=== PATIENT | male | born 1990 | race Caucasian/White ===

== ENCOUNTER 2017-01-25 20:38 | Emergency (ER) | payer SELFPAY ==
[2017-01-25] MEDS ORDERED: predniSONE 20 MG TAB PO ONE (21:42)
[2017-01-25] MEDS ORDERED: SULFA/TRIMETH 800/160 (DS) TAB 1 EA TAB PO ONE (21:42)
[2017-01-25 21:44] VITALS: TEMP 97.4; O2SAT 100
--- NOTE | 2017-01-25 22:47 | ED.PDOC ---
History of Present Illness - General Chief Complaint: Upper Extremity Injury Stated Complaint: edema to rt hand Time Seen by Provider: 01/25/17 21:37 Source: patient Exam Limitations: no limitations - History of Present Illness Initial Comments: he patient is a 26-year-old male presenting to emergency room secondary to swelling and pain of his right hand. The patient was stung on the dorsal aspect of his hand last night when he was putting up some medical equipment. I can actually see the spot where he was stung. He is unsure what kind of insect it was as it was dark outside. He had some burning and itching and tingling at the time. He got a little bit better overnight. He woke up this morning with some mild swelling in his hand that has progressed in the day. At this point in time he has significant swelling of the whole hand as well as the distal third of the forearm. He is neurovascularly intact. Capillary refills within normal limits. There is no blister formation. There is no obvious infectious cellulitis. I see no abscess. There is nothing at this time to drain. He is not febrile. There is mild warmth to the swelling. Tendon functions appear preserved. No other areas affected. No breathing difficulties. No extending rash passed that. Timing/Duration: 24 hours Severity: moderate Improving Factors: nothing Worsening Factors: nothing Associated Symptoms: denies symptoms Allergies/Adverse Reactions: Allergies Amoxicillin Allergy (Verified 07/03/15 12:51) Penicillins Allergy (Verified 07/08/14 13:40) Home Medications: Ambulatory Orders Sulfa/Trimeth 800/160 (Ds) Tab [Bactrim DS Tab] 1 ea PO BID #10 tab 01/25/17 predniSONE [Prednisone] 20 mg PO DAILY #5 tab 01/25/17 Review of Systems - Review of Systems Constitutional: States: no symptoms reported EENTM: States: no symptoms reported Respiratory: States: no symptoms reported Cardiology: States: no symptoms reported Gastrointestinal/Abdominal: States: no symptoms reported Genitourinary: States: no symptoms reported Musculoskeletal: States: see HPI Skin: States: see HPI Neurological: States: no symptoms reported Endocrine: States: no symptoms reported All other Systems: No Change from Baseline Past Medical History (General) - Patient Medical History Hx Seizures: No Hx Stroke: No Hx Dementia: No Hx Asthma: No Hx of COPD: No Hx Cardiac Disorders: No Hx Congestive Heart Failure: No Hx Pacemaker: No Hx Hypertension: No Hx Thyroid Disease: No Hx Diabetes: No Hx Gastroesophageal Reflux: No Hx Renal Disease: No Hx Cancer: No Hx of HIV: No Hx Hepatitis C: No Hx MRSA: No Surgical History: no surgical history - Vaccination History Hx Tetanus, Diphtheria Vaccination: Yes Hx Influenza Vaccination: No - Social History Hx Tobacco Use: Yes Hx Alcohol Use: No Hx Substance Use: - occasionally smokes weed Hx Substance Use Treatment: No Hx Depression: No Family Medical History - Family History Mother Family History: No Known Physical Exam - Physical Exam General Appearance: Alert, Comfortable, No apparent distress Eye Exam: bilateral normal Ears, Nose, Throat: hearing grossly normal, normal ENT inspection, normal pharynx Neck: full range of motion, supple Respiratory: chest non-tender, lungs clear, normal breath sounds, no respiratory distress, no accessory muscle use Cardiovascular/Chest: normal peripheral pulses, regular rate, rhythm, no edema Peripheral Pulses: radial,right: 2+, radial,left: 2+ Extremity: normal range of motion, no pedal edema, no calf tenderness, normal capillary refill, swelling - see history of present illness. No other blisters. No pustules. No papules. Simply generalized swelling. 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 I do not think there is any active infection. the patient did however receive a dose of Bactrim tonight here and a dose of prednisone. The patient will be written for Bactrim DS twice daily for 5 days primarily prophylactically, and he needs to take these with food. He 'll be written for prednisone 20 mg daily for 5 days as well. He will be allowed to go home but if there is any significant worsening tomorrow he will need to be reevaluated. ER warnings were given. Motrin can be used for discomfort as well. There is no evidence of neurovascular compromise at this time. No evidence of any tissue necrosis. Departure - Departure Clinical Impression: Allergic reaction to insect sting Qualifiers: Encounter type: initial encounter Injury intent: accidental or unintentional Qualified Code(s): T63.481A - Toxic effect of venom of other arthropod, accidental (unintentional), initial encounter Disposition: Discharge to Home or Self Care Condition: Fair Departure Forms: ED Discharge - Pt. Copy, Patient Portal Self Enrollment Instructions: DI for Insect Allergy Diet: regular diet Activity: increase activity as tolerated Prescriptions: predniSONE [Prednisone] 20 mg PO DAILY #5 tab Sulfa/Trimeth 800/160 (Ds) Tab [Bactrim DS Tab] 1 ea PO BID #10 tab Home Medications: Ambulatory Orders Sulfa/Trimeth 800/160 (Ds) Tab [Bactrim DS Tab] 1 ea PO BID #10 tab 01/25/17 predniSONE [Prednisone] 20 mg PO DAILY #5 tab 01/25/17 Additional Instructions: the patient is a 26-year-old male presenting with localized swelling of the hand and forearm on the right that appears to be due to an allergic reaction to an insect sting from last night. I do not think there is any active infection. the patient did however receive a dose of Bactrim tonight here and a dose of prednisone. The patient will be written for Bactrim DS twice daily for 5 days primarily prophylactically, and he needs to take these with food. He 'll be written for prednisone 20 mg daily for 5 days as well. He will be allowed to go home but if there is any significant worsening tomorrow he will need to be reevaluated. ER warnings were given. Motrin can be used for discomfort as well. There is no evidence of neurovascular compromise at this time. No evidence of any tissue necrosis.
[2017-01-25 23:04] VITALS: BP 122/72
== END 2017-01-25 23:04 | disposition home or self-care (01) ==
LOC: ER 20:38
DX: T63.481A Toxic effect of venom of other arthropod, accidental (unintentional), initial encounter (principal); M79.89 Other specified soft tissue disorders; Z88.3 Allergy status to other anti-infective agents; Z88.0 Allergy status to penicillin; Z87.891 Personal history of nicotine dependence

== ENCOUNTER 2017-11-14 20:46 | Emergency (ER) | payer SELFPAY ==
[2017-11-14] MEDS ORDERED: SULFA/TRIMETH 800/160 (DS) TAB 1 EA TAB PO ONE (21:05)
--- NOTE | 2017-11-14 21:13 | ED.PDOC ---
History of Present Illness - General Time Seen by Provider: 11/14/17 21:04 Source: patient Exam Limitations: no limitations - History of Present Illness Initial Comments: The patient is a 27-year-old male presenting to emergency room secondary to a left earlobe abscess that has been growing over the last week. No drainage. No fevers. No evidence of extending cellulitis. No hearing changes. No altered mental status. No headache. No previous abscesses. Timing/Duration: unsure Severity: moderate Improving Factors: nothing Worsening Factors: nothing Associated Symptoms: denies symptoms Allergies/Adverse Reactions: Allergies Amoxicillin Allergy (Verified 07/03/15 12:51) Penicillins Allergy (Verified 07/08/14 13:40) Home Medications: Ambulatory Orders Sulfa/Trimeth 800/160 (Ds) Tab [Bactrim DS Tab] 1 ea PO BID #10 tab 01/25/17 predniSONE [Prednisone] 20 mg PO DAILY #5 tab 01/25/17 Sulfa/Trimeth 800/160 (Ds) Tab [Bactrim DS Tab] 1 ea PO BID #14 tab 11/14/17 Review of Systems - Review of Systems Constitutional: States: no symptoms reported EENTM: States: see HPI Respiratory: States: no symptoms reported Cardiology: States: no symptoms reported Gastrointestinal/Abdominal: States: no symptoms reported Genitourinary: States: no symptoms reported Musculoskeletal: States: no symptoms reported Skin: States: see HPI Neurological: States: no symptoms reported Endocrine: States: no symptoms reported All other Systems: No Change from Baseline Past Medical History (General) - Patient Medical History Hx Seizures: No Hx Stroke: No Hx Dementia: No Hx Asthma: No Hx of COPD: No Hx Cardiac Disorders: No Hx Congestive Heart Failure: No Hx Pacemaker: No Hx Hypertension: No Hx Thyroid Disease: No Hx Diabetes: No Hx Gastroesophageal Reflux: No Hx Renal Disease: No Hx Cancer: No Hx of HIV: No Hx Hepatitis C: No Hx MRSA: No - Vaccination History Hx Tetanus, Diphtheria Vaccination: Yes Hx Influenza Vaccination: No - Social History Hx Tobacco Use: Yes Hx Alcohol Use: No Hx Substance Use: - occasionally smokes weed Hx Substance Use Treatment: No Hx Depression: No Family Medical History - Family History Mother Family History: No Known Physical Exam - Physical Exam General Appearance: Alert, Comfortable, No apparent distress Eye Exam: bilateral normal Ears, Nose, Throat: hearing grossly normal, normal pharynx Neck: full range of motion, supple Respiratory: no respiratory distress, no accessory muscle use Cardiovascular/Chest: normal peripheral pulses, no edema Peripheral Pulses: radial,right: 2+, radial,left: 2+ Gastrointestinal/Abdominal: non tender, soft Rectal Exam: deferred 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 After risks and benefits were explained the patient agreed to I&D. A #15 blade scalpel was used to make a 1.5 cm incision into the posterior aspect of the abscess. Approximately 2 cc of pus were obtained. Dressing was applied. The patient was given his first dose of Bactrim here tonight. The patient be placed on Bactrim twice daily for the next 7 days. Needs to wash the wound twice daily with antibacterial soap and express out any additional pus that is there. ER warnings were given for any worsening. Departure - Departure Clinical Impression: Skin abscess Qualifiers: Site of cutaneous abscess: face Qualified Code(s): L02.01 - Cutaneous abscess of face Disposition: Discharge to Home or Self Care Condition: Fair Instructions: DI for Skin Abscess Diet: regular diet Activity: increase activity as tolerated Prescriptions: Sulfa/Trimeth 800/160 (Ds) Tab [Bactrim DS Tab] 1 ea PO BID #14 tab Home Medications: Ambulatory Orders Sulfa/Trimeth 800/160 (Ds) Tab [Bactrim DS Tab] 1 ea PO BID #10 tab 01/25/17 predniSONE [Prednisone] 20 mg PO DAILY #5 tab 01/25/17 Sulfa/Trimeth 800/160 (Ds) Tab [Bactrim DS Tab] 1 ea PO BID #14 tab 11/14/17 Additional Instructions: the patient is a 27-year-old male presenting to emergency room with an abscess to left earlobe. After risks and benefits were explained the patient agreed to I&D. A #15 blade scalpel was used to make a 1.5 cm incision into the posterior aspect of the abscess. Approximately 2 cc of pus were obtained. Dressing was applied. The patient was given his first dose of Bactrim here tonight. The patient be placed on Bactrim twice daily for the next 7 days. Needs to wash the wound twice daily with antibacterial soap and express out any additional pus that is there. ER warnings were given for any worsening.
[2017-11-14 22:07] VITALS: BP 127/76; TEMP 97.9; O2SAT 99
== END 2017-11-14 21:35 | disposition home or self-care (01) ==
LOC: ER 20:46
DX: H60.02 Abscess of left external ear (principal); Z87.891 Personal history of nicotine dependence

== ENCOUNTER 2018-01-21 18:47 | Emergency (ER) | payer SELFPAY ==
[2018-01-21 19:03] VITALS: O2SAT 96
[2018-01-21] MEDS ORDERED: methylPREDNISolone SODIUM SUC 125 MG/2 ML VIAL IM ONE (19:05)
[2018-01-21] MEDS ORDERED: cefTRIAXone SODIUM 1 GM VIAL IM ONE (19:05)
--- NOTE | 2018-01-21 19:09 | ED.PDOC ---
History of Present Illness - General Chief Complaint: Bite: Animal/Insect/Human Stated Complaint: Bit by something on left elbow Time Seen by Provider: 01/21/18 19:05 Source: patient Exam Limitations: no limitations - History of Present Illness Initial Comments: patient comes in today for insect bites with swelling and redness. Patient states yesterday he felt a sudden stinging pain and then they felt a black bug that was on top of him he believes was a spider. At that time the area was very itchy with a little bit of clear fluid from the central vesicle last night. Since then however the arm has gotten red, hot, and swollen. The pain is increasing and patient started becoming concerned. He does not have any fever, chills, nausea or vomiting. He is otherwise healthy and has no past medical history. He does not take any medications chronically and he has no known drug allergies. Timing/Duration: getting worse, other - started yesterday Severity: moderate Improving Factors: nothing Worsening Factors: nothing Associated Symptoms: denies symptoms Allergies/Adverse Reactions: Allergies NO KNOWN ALLERGY Allergy (Verified 01/21/18 19:04) Home Medications: Ambulatory Orders Sulfa/Trimeth 800/160 (Ds) Tab [Bactrim DS Tab] 1 ea PO BID #10 tab 01/25/17 predniSONE [Prednisone] 20 mg PO DAILY #5 tab 01/25/17 Sulfa/Trimeth 800/160 (Ds) Tab [Bactrim DS Tab] 1 ea PO BID #14 tab 11/14/17 Cephalexin 500 mg PO TID 7 Days #21 cap 01/21/18 Prednisone 10 mg PO DAILY 4 Days #4 tab 01/21/18 Review of Systems - Review of Systems Constitutional: States: no symptoms reported. Denies: chills, diaphoresis, fever EENTM: States: no symptoms reported Respiratory: States: no symptoms reported. Denies: cough, short of breath, wheezing Cardiology: States: no symptoms reported Gastrointestinal/Abdominal: States: no symptoms reported. Denies: nausea, vomiting Skin: States: see HPI Past Medical History (General) - Patient Medical History Hx Seizures: No Hx Stroke: No Hx Dementia: No Hx Asthma: No Hx of COPD: No Hx Cardiac Disorders: No Hx Congestive Heart Failure: No Hx Pacemaker: No Hx Hypertension: No Hx Thyroid Disease: No Hx Diabetes: No Hx Gastroesophageal Reflux: No Hx Renal Disease: No Hx Cancer: No Hx of HIV: No Hx Hepatitis C: No Hx MRSA: No Surgical History: no surgical history - Vaccination History Hx Tetanus, Diphtheria Vaccination: Yes Hx Influenza Vaccination: No Hx Pneumococcal Vaccination: No Immunizations Up to Date: Yes - Social History Hx Tobacco Use: Yes Hx Chewing Tobacco Use: No Hx Alcohol Use: No Hx Substance Use: No - occasionally smokes weed Hx Substance Use Treatment: No Hx Depression: No Feels Threatened In Home Enviroment: No Feels Threatened In a Relationship: No Hx Physical Abuse: No Hx Emotional Abuse: No Hx Suspected Abuse: No - Activities of Daily Living Hospice Agency (if applicable):: None - Triage Comment ED Triage Comment: Pt states that he was bit by something yesterday morning but did not see what it was. Pt states he has taken anything or done anything to care for bite. Family Medical History - Family History Mother Family History: No Known Physical Exam - Physical Exam General Appearance: No apparent distress Eye Exam: bilateral normal Ears, Nose, Throat: hearing grossly normal Respiratory: chest non-tender, lungs clear, normal breath sounds, no respiratory distress Cardiovascular/Chest: normal peripheral pulses, regular rate, rhythm, no edema, no gallop, no JVD, no murmur Peripheral Pulses: radial,right: 2+, radial,left: 2+ Gastrointestinal/Abdominal: normal bowel sounds, non tender, soft Extremity: other - patient has 2 small envenomation hood behind the left elbow with 5 cm area of induration without fluctuance and swelling and redness that progresses to the anterior portion of the arm. Area was marked. No necrosis is seen and no purulence. Neurologic: alert, oriented x 3 Progress - Progress Progress: 01/21/18 19:10 this does appear to be an irritated spider bite. It is very red and swollen and although I think this is primarily a reaction to the venom as well as irritation from his scratching he is at risk because of his manual manipulation of infection as well. I've given him a Rocephin shot and aSolu-Medrol shot as he cannot swallow pills. Tdap given. We'll send him home on liquid Keflex and liquid steroids. He is to take liquid Benadryl 25 mg every 6 hours with sedation precautions discussed. He should return to the emergency room for systemic symptoms including temperature greater than 100.5, nausea, emesis, worsening pain or swelling of the arm. Follow up in 4-5 days with PCP in the clinic. Departure - Departure Clinical Impression: Insect bites Qualifiers: Encounter type: initial encounter Qualified Code(s): W57.XXXA - Bitten or stung by nonvenomous insect and other nonvenomous arthropods, initial encounter Cellulitis Qualifiers: Site of cellulitis: extremity Site of cellulitis of extremity: upper extremity Laterality: left Qualified Code(s): L03.114 - Cellulitis of left upper limb Disposition: Discharge to Home or Self Care Condition: Good Departure Forms: ED Discharge - Pt. Copy, Patient Portal Self Enrollment Diet: regular diet Activity: increase activity as tolerated Prescriptions: Cephalexin 500 mg PO TID 7 Days #21 cap Prednisone 10 mg PO DAILY 4 Days #4 tab Home Medications: Ambulatory Orders Sulfa/Trimeth 800/160 (Ds) Tab [Bactrim DS Tab] 1 ea PO BID #10 tab 01/25/17 predniSONE [Prednisone] 20 mg PO DAILY #5 tab 01/25/17 Sulfa/Trimeth 800/160 (Ds) Tab [Bactrim DS Tab] 1 ea PO BID #14 tab 11/14/17 Cephalexin 500 mg PO TID 7 Days #21 cap 01/21/18 Prednisone 10 mg PO DAILY 4 Days #4 tab 01/21/18 Additional Instructions: prescriptions changed to liquid form. Patient should return to the emergency room for temp greater than 100.5, increased swelling or pain of the arm, nausea and emesis, or change in presentation at the site of the bite. Stop scratching the area. [id number] Benadryl 25 mg every 6 hours 2 days with sedation precautions. Follow up in 3-4 days with PCP to recheck area. Area was marked for current swelling and redness.
[2018-01-21 19:24] VITALS: BP 103/62; TEMP 98.7
== END 2018-01-21 19:22 | disposition home or self-care (01) ==
LOC: ER 18:47
DX: S50.362A Insect bite (nonvenomous) of left elbow, initial encounter (principal); L03.114 Cellulitis of left upper limb; Z87.891 Personal history of nicotine dependence; W57.XXXA Bitten or stung by nonvenomous insect and other nonvenomous arthropods, initial encounter; Y92.9 Unspecified place or not applicable
CPT/HCPCS: J0696; J2930